=== PATIENT | male | born 1995 | race Caucasian/White ===

== ENCOUNTER 2018-02-06 12:30 | Day surgery (SDC) | payer BC ==
[2018-02-06] MEDS ORDERED: PROPOFOL 40 ML (14:56)
[2018-02-06] MEDS ORDERED: LIDOCAINE 100 MG SYRINGE (14:56)
== END 2018-02-06 16:54 | disposition home or self-care (01) ==
LOC: GIL 12:30
DX: K29.50 Unspecified chronic gastritis without bleeding (principal); K44.9 Diaphragmatic hernia without obstruction or gangrene; K20.9 Esophagitis, unspecified; J45.909 Unspecified asthma, uncomplicated
CPT/HCPCS: 43239; 88305; 88312